=== PATIENT | male | born 1960 | race Hispanic/Latino ===

== ENCOUNTER 2022-03-05 11:43 | Emergency (ER) | payer SELFPAY ==
[~2022-03-05] VITALS: Ht 172.7 cm; Wt 80.0 kg
[2022-03-05 13:07] VITALS: BP 125/86
[2022-03-05 13:36] VITALS: BP 125/86
== END 2022-03-05 13:53 | disposition home or self-care (01) | DRG 607 ==
LOC: ED 11:43
DX: A63.0 Anogenital (venereal) warts (principal)